=== PATIENT | male | born 1975 | race Two or more races ===

== ENCOUNTER 2018-06-22 20:36 | Emergency (ER) | payer SELFPAY ==
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
--- NOTE | 2018-06-23 09:16 | Diagnostic Imaging Report ---
Exam: Chest x-ray single view History: Trauma Comparison: None The heart size is normal. No focal pulmonary parenchymal processes. No hilar or mediastinal abnormalities. Impression: No acute abnormalities
--- NOTE | 2018-06-24 10:53 | Diagnostic Imaging Report ---
Lumbar spine (limited, 3 views HISTORY: Pain, trauma Alignment is normal. Disc spaces are maintained. Spur formation extends of the anterior margin of the body of L4. Calcific density noted adjacent to the right transverse process of L4. Radiolucency traverses the right transverse process of L5. Fractures cannot be excluded. If necessary, a CT scan would provide additional assessment and evaluation. IMPRESSION: 1. Calcific density adjacent to the right transverse process of L4 along with a radiolucency traversing the right transverse process of L5. Acute fractures cannot be excluded. Clinical correlation and if needed, a CT scan would provide additional assessment. 2. Degenerative changes L5 The abnormal findings were reported to the emergency department June 24, 2018 (11:00 AM).
== END 2018-06-22 22:06 | disposition home or self-care (01) ==
LOC: ER 20:36
DX: S39.012A Strain of muscle, fascia and tendon of lower back, initial encounter (principal); S29.011A Strain of muscle and tendon of front wall of thorax, initial encounter; V89.2XXA Person injured in unspecified motor-vehicle accident, traffic, initial encounter; Y93.89 Activity, other specified; Y92.410 Unspecified street and highway as the place of occurrence of the external cause; Y99.8 Other external cause status
CPT/HCPCS: 71045-TC; 72100-TC; Z7502